=== PATIENT | female | born 1995 | race American Indian/Alaskan Native ===

== ENCOUNTER 2019-04-01 18:33 | Emergency (ER) | payer OTHER ==
[2019-04-01 18:42] VITALS: BP 105/64
--- NOTE | 2019-04-01 18:42 | Emergency Department Report ---
Blank Doc - Documentation Documentation: This is a 23-year-old female that presents with right great toe pain and swell ing. EXam shows cellulitis and a possible abscess to the posterior great toe. This initial assessment/diagnostic orders/clinical plan/treatment(s) is/are subject to change based on patient's health status, clinical progression and re- assessment by fellow clinical providers in the ED. Further treatment and workup at subsequent clinical providers discretion. Patient/guardians urged not to elope from the ED as their condition may be serious if not clinically assessed and managed. Initial orders include: 1- Patient sent to [facility] for further evaluation and treatment 2- xray
--- NOTE | 2019-04-01 21:33 | Emergency Department Report ---
ED Extremity Problem HPI - General Chief complaint: Skin/Abscess/Foreign Body Stated complaint: MRSA/BOILS ON RT FOOT Time Seen by Provider: 04/01/19 18:41 Source: patient Mode of arrival: Ambulatory Limitations: No Limitations - History of Present Illness Initial comments: Pt is a 23 yo female who presents to the ED with c/o right big toe edema and suri n that began a month ago. She states it has worsened in the last 3 days. The patient states it initially began as a callus to the bottom of the right big toe. She states she had been driving with her shoes off and she was incarcerated. The patient states over the last three days it has increased in size and she has noticed some mild erythema. She states also near the callus she has seen white pus underneath the skin. She denies any drainage. SHe denies any fever. She states she has a hx of abscesses in other areas. She denies any PMHx, she denies any allergies to medications. - Related Data Previous Rx's Medication Instructions Recorded Last Taken Type Azithromycin [Zithromax Z-MARIELY] 250 mg PO QDAY #6 tablet 12/24/18 Unknown Rx Sulfamethoxazole/Trimethoprim 1 each PO BID 7 Days #14 tablet 04/01/19 Unknown Rx [Bactrim DS TAB] Allergies Allergy/AdvReac Type Severity Reaction Status Date / Time No Known Allergies Allergy Verified 04/01/19 18:34 ED Review of Systems ROS: Stated complaint: MRSA/BOILS ON RT FOOT Other details as noted in HPI Comment: All other systems reviewed and negative ED Past Medical Hx - Past Medical History Hx Psychiatric Treatment: Yes (anxeity) - Surgical History Additional Surgical History: section x1 - Social History Smoking Status: Current Every Day Smoker Substance Use Type: Alcohol - Medications Home Medications: Home Medications Medication Instructions Recorded Confirmed Last Taken Type Azithromycin [Zithromax Z-MARIELY] 250 mg PO QDAY #6 tablet 12/24/18 Unknown Rx Sulfamethoxazole/Trimethoprim 1 each PO BID 7 Days #14 tablet 04/01/19 Unknown Rx [Bactrim DS TAB] ED Physical Exam - General Limitations: No Limitations General appearance: alert, in no apparent distress - Head Head exam: Present: atraumatic, normocephalic - Eye Eye exam: Present: normal appearance - Neurological Exam Neurological exam: Present: alert, oriented X3 - Psychiatric Psychiatric exam: Present: normal affect, normal mood - Skin Skin exam: Present: warm, dry, other (right big toe with small amount of edema, very light erythema to the big toe and approximately 3 cm present distal to the toe on the foot, small callus on the bottom of the right toe, 0.5 cm of white purulent drainage next to the calus on the bottom of the right toe, no active drainage, no area of fluctuance, FROM of the right toe without difficulty, neurovascularly intact) ED Course Vital Signs 04/01/19 04/01/19 18:41 22:23 Temperature 97.9 F Pulse Rate 75 89 Respiratory 18 15 Rate Blood Pressure 105/64 O2 Sat by Pulse 100 97 Oximetry ED Medical Decision Making - Radiology Data Radiology results: report reviewed PROCEDURE: XR FOOT 3+V RT TECHNIQUE: Right foot radiographs, AP, lateral, and oblique views. HISTORY: pain with possible cellulitis COMPARISONS: None . FINDINGS: Fracture (s) and/or Dislocation(s): No acute fracture is noted. An irregular ossific density is noted in the tip of lateral malleolus measuring 9 mm demonstrating well-defined cortical outlines. This most likely represents an old avulsion fracture. . Alignment: Normal . Joint space(s): Normal . Soft tissues: Normal . Bone mineralization: Normal . Foreign bodies: None . Calcaneal spurring: None . IMPRESSION: No acute abnormality. This document is electronically signed by Basim Garcia MD., Apr 01 2019 09:45:51 PM ET - Medical Decision Making Pt is a 23 yo female who presents to the ED with c/o right big toe edema and pain that began a month ago. She states it has worsened in the last 3 days. The patient states it initially began as a callus to the bottom of the right big toe. She states she had been driving with her shoes off and she was incarcerated. The patient states over the last three days it has increased in size and she has noticed some mild erythema. She states also near the callus she has seen white pus underneath the skin. She denies any drainage. SHe denies any fever. She states she has a hx of abscesses in other areas. She denies any PMHx, she denies any allergies to medications. XR right foot with no acute process. Pts foot was marked with a skin marker. discussed with pt to return to the ED immediately if the erythema began to cross the marked line. pt given bactrim, advised to take all medication as prescribed. examination consistent with a superficial cellulitis. advised pt to follow up with a primary care doctor in the next 2-3 days. return to the emergency room immediately for any new or worsening symptoms. Critical care attestation.: If time is entered above; I have spent that time in minutes in the direct care of this critically ill patient, excluding procedure time. ED Disposition Clinical Impression: Cellulitis of toe of right foot Disposition: - TO HOME OR SELFCARE Is pt being admited?: No Does the pt Need Aspirin: No Condition: Stable Instructions: Cellulitis (ED) Additional Instructions: Please take all medication as prescribed. please continue to observe the area and if the redness begins to cross the line that is drawn return to the emergency room immediately. follow up with a primary care doctor in the next 2-3 days. return to the emergency room for any new or worsening symptoms. Prescriptions: Sulfamethoxazole/Trimethoprim [Bactrim DS TAB] 1 each PO BID 7 Days #14 tablet Referrals: ALEK FORTUNE MD [Primary Care Provider] - 2-3 Days Forms: Work/School Release Form(ED) Time of Disposition: 22:00 Print Language: [place]
--- NOTE | 2019-04-01 21:47 | XRay Report ---
PROCEDURE: XR FOOT 3+V RT TECHNIQUE: Right foot radiographs, AP, lateral, and oblique views. HISTORY: pain with possible cellulitis COMPARISONS: None . FINDINGS: Fracture (s) and/or Dislocation(s): No acute fracture is noted. An irregular ossific density is note d in the tip of lateral malleolus measuring 9 mm demonstrating well-defined cortical outlines. This m ost likely represents an old avulsion fracture. . Alignment: Normal . Joint space(s): Normal . Soft tissues: Normal . Bone mineralization: Normal . Foreign bodies: None . Calcaneal spurring: None . IMPRESSION: No acute abnormality. This document is electronically signed by Basim Garcia MD., Apr 01 2019 09:45:51 PM ET
== END 2019-04-01 22:23 | disposition home or self-care (01) ==
LOC: ED 18:33
DX: L03.031 Cellulitis of right toe (principal); F17.200 Nicotine dependence, unspecified, uncomplicated
CPT/HCPCS: 99283